=== PATIENT | male | born 1985 | race Asian ===

== ENCOUNTER 2019-06-26 13:55 | Emergency (ER) | payer OTHER ==
[2019-06-26 16:27] LABS: Absolute Lymphocytes (CBC) 2.5 K/uL (0.7-4.9); Basophils % 0.8 % (0-1.3); Hematocrit 48.5 % (39.6-49.0); Lymphocytes % 36.6 % (15.3-44.8); MPV 8.5 fL (7.6-11.3); RBC Red Blood Cell Count 5.65 M/uL (4.33-5.43)
[2019-06-26] MEDS ORDERED: MECLIZINE HCL 12.5 MG TAB ONE (16:38)
[2019-06-26] MEDS ORDERED: NA CHLORIDE 0.9% 1,000 ML ONE (16:38)
[2019-06-26] MEDS ORDERED: DIAZEPAM 10 MG/2 ML INJ SYRINGE ONE (16:38)
[2019-06-26 16:49] LABS: BUN Blood Urea Nitrogen 11 mg/dL (7-18); Bicarbonate 26 mmol/L (21-32); Glucose Level 93 mg/dL (74-106); Potassium 4.1 mmol/L (3.5-5.1); Sodium Level 138 mmol/L (136-145)
--- NOTE | 2019-06-26 17:03 | RAD REPORT ---
EXAM DESCRIPTION: CT - Head Brain Wo Cont - 06/26/2019 4:45 pm CLINICAL HISTORY: Dizziness COMPARISON: None. TECHNIQUE: Computed axial tomography of the head was obtained. IV contrast was not requested. All CT scans are performed using dose optimization technique as appropriate and may include automated exposure control or mA/KV adjustment according to patient size. FINDINGS: An intracranial bleed is not seen . The ventricles are normal in caliber. No extra-axial fluid collection is noted. Fluid within the sinuses/ mastoids is not seen. IMPRESSION: No acute intracranial abnormality is seen. If patient's symptoms persist MRI of the bra in would be recommended.
--- NOTE | 2019-06-26 17:20 | EDPHYS ---
Physician Documentation [facility] Name: Lopez Rubi Age: 34 yrs Sex: Male : 1985 Arrival Date: 06/26/2019 Time: 13:59 Bed 23 Private MD: ED Physician Reagan Tucker HPI: 06/25 17:02 This 34 yrs old Male presents to ER via Ambulatory with complaints of Dizziness, jr8 Nausea/Vomiting. 17:02 The patient presents with dizziness. Onset: The symptoms/episode began/occurred jr8 acutely, yesterday. Context: occurred at home, occurred while the patient was standing. Modifying factors: The symptoms are alleviated by holding head still, lying down, the symptoms are aggravated by movement of head, standing up, changing position. Associated signs and symptoms: Pertinent positives: nausea. Severity of symptoms: At their worst the symptoms were moderate in the emergency department the symptoms are unchanged. Patient's baseline: Neuro: alert and fully oriented, Motor: no deficits, Ambulation: walks without assistance, Speech: normal. The patient has not experienced similar symptoms in the past. The patient has not recently seen a physician. Historical: - Allergies: 14:29 No Known Allergies; ca1 - Home Meds: 14:29 None [Active]; ca1 - PMHx: 14:29 None; ca1 - PSHx: 14:29 None; ca1 - Immunization history:: Adult Immunizations up to date. - Social history:: Smoking status: Patient/guardian denies using tobacco, Stopped _ months ago 3. ROS: 17:02 Eyes: Negative for injury, pain, redness, and discharge, ENT: Negative for injury, jr8 pain, and discharge, Neck: Negative for injury, pain, and swelling, Cardiovascular: Negative for chest pain, palpitations, and edema, Respiratory: Negative for shortness of breath, cough, wheezing, and pleuritic chest pain, Back: Negative for injury and pain, MS/Extremity: Negative for injury and deformity, Skin: Negative for injury, rash, and discoloration. 17:02 Abdomen/GI: Positive for nausea. 17:02 Neuro: Positive for dizziness. Exam: 17:02 Eyes: Pupils equal round and reactive to light, extra-ocular motions intact. Lids and jr8 lashes normal. Conjunctiva and sclera are non-icteric and not injected. Cornea within normal limits. Periorbital areas with no swelling, redness, or edema. ENT: Nares patent. No nasal discharge, no septal abnormalities noted. Tympanic membranes are normal and external auditory canals are clear. Oropharynx with no redness, swelling, or masses, exudates, or evidence of obstruction, uvula midline. Mucous membranes moist. Neck: Trachea midline, no thyromegaly or masses palpated, and no cervical lymphadenopathy. Supple, full range of motion without nuchal rigidity, or vertebral point tenderness. No Meningismus. Cardiovascular: Regular rate and rhythm with a normal S1 and S2. No gallops, murmurs, or rubs. Normal PMI, no JVD. No pulse deficits. Respiratory: Lungs have equal breath sounds bilaterally, clear to auscultation and percussion. No rales, rhonchi or wheezes noted. No increased work of breathing, no retractions or nasal flaring. Abdomen/GI: Soft, non-tender, with normal bowel sounds. No distension or tympany. No guarding or rebound. No evidence of tenderness throughout. Back: No spinal tenderness. No costovertebral tenderness. Full range of motion. Skin: Warm, dry with normal turgor. Normal color with no rashes, no lesions, and no evidence of cellulitis. MS/ Extremity: Pulses equal, no cyanosis. Neurovascular intact. Full, normal range of motion. Neuro: Awake and alert, GCS 15, oriented to person, place, time, and situation. Cranial nerves II-XII grossly intact. Motor strength 5/5 in all extremities. Sensory grossly intact. Cerebellar exam normal. Normal gait. Vital Signs: 14:24 BP 134 / 85; Pulse 72; Resp 15 S; Temp 98(TE); Pulse Ox 100% on R/A; Weight 81.65 kg ca1 (R); Height 6 ft. 3 in. (190.50 cm); Pain 1/10; 14:24 Body Mass Index 22.50 (81.65 kg, 190.50 cm) ca1 MDM: 15:54 Patient medically screened. jr 17:18 Data reviewed: vital signs, nurses notes, lab test result(s), and as a result, I will jr8 discharge patient. Data interpreted: Pulse oximetry: on room air is 100 %. Interpretation: normal. Counseling: I had a detailed discussion with the patient and/or guardian regarding: the historical points, exam findings, and any diagnostic results supporting the discharge/admit diagnosis, lab results, the need for outpatient follow up, a family practitioner, to return to the emergency department if symptoms worsen or persist or if there are any questions or concerns that arise at home. Response to treatment: the patient's symptoms have markedly improved after treatment, patient is well hydrated. 17:19 Differential diagnosis: cardiac arrhythmia, CVA, generalized weakness, hypovolemia, jr8 idiopathic dizziness, near-syncope, syncope, TIA, vertigo. 06/25 16:13 Order name: CBC with Diff; Complete Time: 16:42 [facility] 06/25 16:13 Order name: Basic Metabolic Panel; Complete Time: 17:00 [facility] 06/25 16:13 Order name: CT Head Brain wo Cont; Complete Time: 17:07 [facility] 06/25 16:14 Order name: IV; Complete Time: 16:25 [facility] Administered Medications: 16:40 Drug: NS 0.9% 1000 ml Route: IV; Rate: 1000 ml; Site: left antecubital; iw 16:40 Drug: Meclizine 25 mg Route: PO; iw 16:40 Drug: Valium 2 mg Route: IVP; Site: left antecubital; iw Disposition: 06/26 09:14 Co-signature as Attending Physician, Reagan Tucker MD I agree with the assessment and kdr plan of care. Disposition: 06/26/19 17:19 Discharged to Home. Impression: Other peripheral vertigo. - Condition is Stable. - Discharge Instructions: Benign Positional Vertigo. - Prescriptions for Meclizine 25 mg Oral Tablet - take 1 tablet by ORAL route every 8 hours As needed; 30 tablet. Valium 2 mg Oral Tablet - take 1 tablet by ORAL route every 8 hours As needed; 20 tablet. - Medication Reconciliation Form, Thank You Letter, Antibiotic Education, Prescription Opioid Use form. - Follow up: Private Physician; When: 1 week; Reason: Recheck today's complaints, Continuance of care, Re-evaluation by your physician. - Problem is new. - Symptoms have improved. Signatures: Dispatcher [employer] EDNC Reagan Tucker MD MD [facility] Xochilt Peña RN RN iw Guicho Lagunas PA PA jr8 Caridad Adams RN RN ca1 Corrections: (The following items were deleted from the chart) 06/25 17:48 17:19 06/26/2019 17:19 Discharged to Home. Impression: Other peripheral vertigo. iw Condition is Stable. Forms are Medication Reconciliation Form, Thank You Letter, Antibiotic Education, Prescription Opioid Use. Follow up: Private Physician; When: 1 week; Reason: Recheck today's complaints, Continuance of care, Re-evaluation by your physician. Problem is new. Symptoms have improved. jr8
--- NOTE | 2019-06-26 17:20 | ER ---
Nurse's Notes [facility] Name: Lopez Rubi Age: 34 yrs Sex: Male : 1985 Arrival Date: 06/26/2019 Time: 13:59 Bed 23 Private MD: Diagnosis: Other peripheral vertigo Presentation: 06/25 14:24 Chief complaint: Patient states: Headache at 1230 mn at work. Took Tylenol and pain was ca1 relieved but had dizziness and nausea. Went to bed, woke up with same headache, more dizziness and nausea. Reports confusion, states, "I forgot my 's middle name, and took me a while to fill out the forms at registration". Reports similar episode of headache, dizziness and nausea 8 years ago and was diagnosed with low potassium. Coronavirus screen: Proceed with normal triage. Patient denies a cough. Patient denies shortness of breath or difficulty breathing. Patient denies measured and/or subjective temperature greater than 100.4F prior to today's visit. Patient denies travel on a cruise ship or to a country the [facility] currently lists as an affected area. Patient denies contact with known and/or suspected case of COVID-19. Ebola Screen: Patient negative for fever greater than or equal to 101.5 degrees Fahrenheit, and additional compatible Ebola Virus Disease symptoms Patient denies exposure to infectious person. Patient denies travel to an Ebola-affected area in the 21 days before illness onset. No symptoms or risks identified at this time. Initial Sepsis Screen: Does the patient meet any 2 criteria? No. Patient's initial sepsis screen is negative. Does the patient have a suspected source of infection? No. Patient's initial sepsis screen is negative. Risk Assessment: Do you want to hurt yourself or someone else? Patient reports no desire to harm self or others. 14:24 Method Of Arrival: Ambulatory ca1 14:24 Acuity: DELPHINE 3 ca1 14:24 Onset of symptoms was June 26, 2019 at 14:28. ca1 Triage Assessment: 17:47 General: Appears in no apparent distress. Behavior is calm. GI: Reports nausea. iw Historical: - Allergies: 14:29 No Known Allergies; ca1 - Home Meds: 14:29 None [Active]; ca1 - PMHx: 14:29 None; ca1 - PSHx: 14:29 None; ca1 - Immunization history:: Adult Immunizations up to date. - Social history:: Smoking status: Patient/guardian denies using tobacco, Stopped _ months ago 3. Screenin:47 Abuse screen: Denies threats or abuse. Denies injuries from another. Nutritional iw screening: No deficits noted. Tuberculosis screening: No symptoms or risk factors identified. Fall Risk None identified. Assessment: 16:00 General: Appears in no apparent distress. Behavior is calm, cooperative. Pain: Denies iw pain. Neuro: Level of Consciousness is awake, alert, obeys commands, Oriented to person, place, time, situation. Respiratory: Respiratory effort is even, unlabored, Respiratory pattern is regular, symmetrical. GI: Abdomen is flat, non-distended. Derm: Skin is intact, is healthy with good turgor. Musculoskeletal: Range of motion: intact in all extremities. 17:02 Reassessment: Patient appears in no apparent distress at this time. Patient and/or iw family updated on plan of care and expected duration. Pain level reassessed. Patient is alert, oriented x 3, equal unlabored respirations, skin warm/dry/pink. Vital Signs: 14:24 BP 134 / 85; Pulse 72; Resp 15 S; Temp 98(TE); Pulse Ox 100% on R/A; Weight 81.65 kg ca1 (R); Height 6 ft. 3 in. (190.50 cm); Pain 1/10; 14:24 Body Mass Index 22.50 (81.65 kg, 190.50 cm) ca1 ED Course: 13:59 Patient arrived in ED. ag5 14:28 Triage completed. ca1 14:29 Arm band placed on right wrist. ca1 15:32 Xochilt Peña, RN is Primary Nurse. iw 15:54 Guicho Lagunas PA is PHCP. jr8 15:54 Reagan Tucker MD is Attending Physician. jr8 16:00 Initial lab(s) drawn, by me, sent to lab. Inserted saline lock: 20 gauge in left iw antecubital area, using aseptic technique. Blood collected. 16:46 CT Head Brain wo Cont In Process Unspecified. EDMS 17:00 Patient has correct armband on for positive identification. iw 17:47 No provider procedures requiring assistance completed. IV discontinued, intact, iw bleeding controlled, No redness/swelling at site. Pressure dressing applied. Administered Medications: 16:40 Drug: NS 0.9% 1000 ml Route: IV; Rate: 1000 ml; Site: left antecubital; iw 16:40 Drug: Meclizine 25 mg Route: PO; iw 16:40 Drug: Valium 2 mg Route: IVP; Site: left antecubital; iw Outcome: 17:19 Discharge ordered by MD. winkler 17:47 Discharged to home ambulatory. iw 17:47 Condition: good 17:47 Discharge instructions given to patient, Instructed on discharge instructions, follow up and referral plans. Demonstrated understanding of instructions, follow-up care. 17:48 Patient left the ED. iw Signatures: Dispatcher [employer] EDMS Xochilt Peña RN RN iw Guicho Lagunas PA PA jr8 Caridad Adams RN RN ca1 Cathy Stone ag5 Corrections: (The following items were deleted from the chart) 14:29 14:24 Pulse 72bpm; Resp 15bpm; Spontaneous; Pulse Ox 100% RA; Temp 98F Temporal; 81.65 ca1 kg Reported; Height 6 ft. 3 in.; BMI: 22.5; Pain 1/10; ca1 16:29 14:24 Chief complaint: Patient states: Headache at 1230 mn at work. Took Tylenol and ca1 was pain was relieved but had dizziness and nausea. Went to bed, woke up with same headache, more dizziness and nausea. Reports confusion, states, "I forgot my 's middle name, and took me a while to fill out the forms at registration". Reports similar episode of headache, dizziness and nausea 8 years ago and was diagnosed with low potassium. ca1
[2019-06-26 18:03] VITALS: BP 134/85; TEMP 98; O2SAT 100
== END 2019-06-26 17:48 | disposition home or self-care (01) ==
LOC: ER 13:55
DX: H81.399 Other peripheral vertigo, unspecified ear (principal)
CPT/HCPCS: 85025; 80048; 36415; 70450; 96374; 99284; J8597; J3360; J7030

== ENCOUNTER 2020-05-23 13:03 | Emergency (ER) | payer OTHER ==
[2020-05-23] MEDS ORDERED: CYCLOBENZAPRINE 10 MG TAB ONE (15:23)
[2020-05-23] MEDS ORDERED: HYDROCODONE/APAP 5/325 MG TAB ONE (15:23)
[2020-05-23] MEDS ORDERED: KETOROLAC 30 MG/ML INJ ONE (15:23)
[2020-05-23] MEDS ORDERED: LIDOCAINE 4% PATCH ONE (15:24)
--- NOTE | 2020-05-23 15:51 | EDPHYS ---
Physician Documentation [facility] Name: Lopez Rbui Age: 35 yrs Sex: Male : 1985 Arrival Date: 05/23/2020 Time: 13:05 Bed 12 Private MD: PRINCESS Physician Hever Asencio HPI: 05/23 14:42 This 35 yrs old Male presents to ER via Ambulatory with complaints of Back Pain. pm1 14:42 The patient presents with pain that is acute, with no known mechanism of injury. The pm1 symptoms are located in the left trapezius. Onset: The symptoms/episode began/occurred May 12. The pain does not radiate. Associated signs and symptoms: Pertinent negatives: abdominal pain, chest pain, dysuria, fever, numbness, tingling, shortness of breath. The problem was sustained from unknown cause, possibly from vaccination. Modifying factors: the patient symptoms are aggravated by movement of arm, moving head side to side and sitting up from lying position. Severity of symptoms: in the emergency department the symptoms are actually worse. The patient has not experienced similar symptoms in the past. Patient with covid vaccine on 05/05/2020. Patient reports only left arm pain since the vaccine then his left upper back started to hurt on May 12. Has been taking OTC medications without any improvement. Back pain worse this today. Historical: - Allergies: 13:34 No Known Allergies; ca1 - Home Meds: 13:34 None [Active]; ca1 - PMHx: 13:34 None; ca1 - PSHx: 13:34 None; ca1 - Immunization history:: Adult Immunizations up to date, Client reports receiving the 1st dose of the Covid vaccine, Flu vaccine is up to date. - Social history:: Smoking status: Patient denies any tobacco usage or history of. ROS: 14:42 Constitutional: Negative for fever, chills, and weight loss. pm1 14:42 Cardiovascular: Negative for chest pain, palpitations, and edema, Respiratory: Negative for shortness of breath, cough, wheezing, and pleuritic chest pain, Abdomen/GI: Negative for abdominal pain, nausea, vomiting, diarrhea, and constipation. 14:42 MS/Extremity: Negative for injury and deformity, Skin: Negative for injury, rash, and discoloration, Neuro: Negative for headache, weakness, numbness, tingling, and seizure. 14:42 Neck: Positive for pain with movement, of the left trapezius, Negative for injury or acute deformity, stiffness, tenderness, bony tenderness. 14:42 Back: Positive for pain with movement, of the left trapezius, Negative for injury or acute deformity, decreased range of motion. Exam: 14:42 Constitutional: This is a well developed, well nourished patient who is awake, alert, pm1 and in no acute distress. Head/Face: Normocephalic, atraumatic. 14:42 Skin: Warm, dry with normal turgor. Normal color with no rashes, no lesions, and no evidence of cellulitis. MS/ Extremity: Pulses equal, no cyanosis. Neurovascular intact. Full, normal range of motion. 14:42 Neck: External neck: is normal, ROM/movement: pain, with rotation to the left, with rotation to the right, to left trapezius. 14:42 Cardiovascular: Exam negative for acute changes, Rate: normal, Rhythm: regular, Pulses: no pulse deficits are appreciated. 14:42 Respiratory: Exam negative for acute changes, respiratory distress, shortness of breath, Breath sounds: are clear throughout. 14:42 Back: pain, of the left trapezius, reproduced pain with raising left arm above his head and moving left elbow towards right shoulder, normal spinal alignment noted. 14:42 Neuro: Exam negative for acute changes, Orientation: is normal, Mentation: is normal, Motor: is normal, moves all fours, Sensation: is normal, no obvious gross deficits, Gait: is steady, at a normal pace, without difficulty. Vital Signs: 13:30 BP 132 / 83; Pulse 80; Resp 16 S; Temp 97.5(TE); Pulse Ox 99% on R/A; Weight 70.31 kg ca1 (R); Height 6 ft. 3 in. (190.50 cm) (R); Pain 7/10; 15:15 BP 116 / 71; Pulse 86; Resp 16 S; Pulse Ox 99% on R/A; ca1 13:30 Body Mass Index 19.37 (70.31 kg, 190.50 cm) ca1 MDM: 14:18 [facility] 15:42 Data reviewed: vital signs. Data interpreted: Pulse oximetry: on room air is 99 %. pm1 Interpretation: normal. 15:46 Medication response: improved. Patient able to situp and move better and reports pain pm1 to back has decreased. therefore will discharge the patient home with similar medications to regimen given here and recommended follow up with his PCP. Administered Medications: 15:13 Drug: Lidoderm 5 % (700 mg/patch) 1 patches Route: Topical; Site: affected area; aa5 15:13 Drug: Flexeril (cyclobenzaprine) 10 mg Route: PO; aa5 16:05 Follow up: Response: No adverse reaction; Marked relief of symptoms; Pain is decreased ca1 15:13 Drug: TORadol (ketorolac) 60 mg Route: IM; Site: left gluteus; aa5 16:06 Follow up: Response: No adverse reaction; Pain is decreased ca1 15:13 Drug: Brewster (HYDROcodone-acetaminophen) 5 mg-325 mg 1 tabs Route: PO; aa5 16:06 Follow up: Response: No adverse reaction; Pain is decreased; RASS: Alert and Calm (0) ca1 Disposition: 05/24 08:31 Co-signature as Attending Physician, Hever Asencio MD I agree with the assessment and marcello plan of care. Disposition: 05/23/20 15:50 Discharged to Home. Impression: Strain of muscle and tendon of back wall of thorax, Strain of muscle, fascia and tendon at neck level. - Condition is Stable. - Discharge Instructions: Muscle Strain. - Prescriptions for Tylenol- Codeine #3 300-30 mg Oral Tablet - take 2 tablets by ORAL route every 4-6 hours As needed; 20 tablet. Cyclobenzaprine 10 mg Oral Tablet - take 1 tablet by ORAL route every 8 hours As needed; 30 tablet. Lidoderm 5 % Topical adhesive patch,medicated - apply 1 patch by TRANSDERMAL route once daily As needed 12 hours on and 12 hour off in a 24 hour period; 30 Transdermal Patch. Diclofenac Sodium 75 mg Oral Tablet, Delayed Release (E.C.) - take 1 tablet by ORAL route 2 times per day As needed; 30 tablet. - Medication Reconciliation Form, Thank You Letter, Antibiotic Education, Prescription Opioid Use form. - Follow up: Emergency Department; When: As needed; Reason: Worsening of condition. Follow up: Private Physician; When: 2 - 3 days; Reason: Recheck today's complaints, Continuance of care, Re-evaluation by your physician. - Problem is new. - Symptoms have improved. Signatures: Hever Asencio MD MD cha Calderon, Audri, RN RN aa5 Gerry Burton, COLD REDUCTION ROLLER COLD REDUCTION ROLLER pm1 Caridad Adams RN RN ca1 Corrections: (The following items were deleted from the chart) 05/23 16:06 15:50 05/23/2020 15:50 Discharged to Home. Impression: Strain of muscle and tendon of ca1 back wall of thorax; Strain of muscle, fascia and tendon at neck level. Condition is Stable. Forms are Medication Reconciliation Form, Thank You Letter, Antibiotic Education, Prescription Opioid Use. Follow up: Emergency Department; When: As needed; Reason: Worsening of condition. Follow up: Private Physician; When: 2 - 3 days; Reason: Recheck today's complaints, Continuance of care, Re-evaluation by your physician. Problem is new. Symptoms have improved. pm1
--- NOTE | 2020-05-23 15:51 | ER ---
Nurse's Notes [facility] Name: Lopez Rubi Age: 35 yrs Sex: Male : 1985 Arrival Date: 05/23/2020 Time: 13:05 Bed 12 Private MD: Diagnosis: Strain of muscle and tendon of back wall of thorax;Strain of muscle, fascia and tendon at neck level Presentation: 05/23 13:28 Method Of Arrival: Ambulatory ca1 13:30 Chief complaint: Patient states: L upper back pain, around the shoulder blade pain ca1 since May 12, 2020, started getting worse yesterday. Had the Covid 05/05/2020 then I had L arm pain, then on the that's when it started. Now, it's just on the back. Denies injury to back. denies lifting anything heavy. Coronavirus screen: Client denies travel out of the [place] in the last 14 days. At this time, the client does not indicate any symptoms associated with coronavirus-19. Ebola Screen: Patient negative for fever greater than or equal to 101.5 degrees Fahrenheit, and additional compatible Ebola Virus Disease symptoms Patient denies exposure to infectious person. Patient denies travel to an Ebola-affected area in the 21 days before illness onset. No symptoms or risks identified at this time. Initial Sepsis Screen: Does the patient meet any 2 criteria? No. Patient's initial sepsis screen is negative. Does the patient have a suspected source of infection? No. Patient's initial sepsis screen is negative. Risk Assessment: Do you want to hurt yourself or someone else? Patient reports no desire to harm self or others. Onset of symptoms was May 23, 2020. 13:30 Acuity: DELPHINE 4 ca1 Historical: - Allergies: 13:34 No Known Allergies; ca1 - Home Meds: 13:34 None [Active]; ca1 - PMHx: 13:34 None; ca1 - PSHx: 13:34 None; ca1 - Immunization history:: Adult Immunizations up to date, Client reports receiving the 1st dose of the Covid vaccine, Flu vaccine is up to date. - Social history:: Smoking status: Patient denies any tobacco usage or history of. Screenin:10 Abuse screen: Denies threats or abuse. Denies injuries from another. Nutritional ca1 screening: No deficits noted. Tuberculosis screening: No symptoms or risk factors identified. Fall Risk None identified. Assessment: 14:10 General: Appears in no apparent distress. comfortable, Behavior is calm, cooperative, ca1 appropriate for age. Pain: Complains of pain in back and left trapezius Pain currently is 3 out of 10 on a pain scale. Neuro: Level of Consciousness is awake, alert, obeys commands, Oriented to person, place, time, situation, Appropriate for age. Derm: Skin is intact, is healthy with good turgor, Skin is pink, warm \T\ dry. Musculoskeletal: Circulation, motion, and sensation intact. Capillary refill < 3 seconds. 16:06 Reassessment: Patient appears in no apparent distress at this time. Patient is alert, ca1 oriented x 3, equal unlabored respirations, skin warm/dry/pink. Patient states feeling better. Patient states symptoms have improved. Vital Signs: 13:30 BP 132 / 83; Pulse 80; Resp 16 S; Temp 97.5(TE); Pulse Ox 99% on R/A; Weight 70.31 kg ca1 (R); Height 6 ft. 3 in. (190.50 cm) (R); Pain 7/10; 15:15 BP 116 / 71; Pulse 86; Resp 16 S; Pulse Ox 99% on R/A; ca1 13:30 Body Mass Index 19.37 (70.31 kg, 190.50 cm) ca1 ED Course: 13:05 Patient arrived in ED. as 13:33 Triage completed. ca1 13:34 Arm band placed on right wrist. ca1 14:10 Patient has correct armband on for positive identification. Call light in reach. Pulse ca1 ox on. NIBP on. 14:14 Gerry Burton NP is PHCP. pm1 14:14 Hever Asencio MD is Attending Physician. pm1 14:21 Caridad Adams RN is Primary Nurse. ca1 15:10 No provider procedures requiring assistance completed. Patient did not have IV access ca1 during this emergency room visit. Administered Medications: 15:13 Drug: Lidoderm 5 % (700 mg/patch) 1 patches Route: Topical; Site: affected area; aa5 15:13 Drug: Flexeril (cyclobenzaprine) 10 mg Route: PO; aa5 16:05 Follow up: Response: No adverse reaction; Marked relief of symptoms; Pain is decreased ca1 15:13 Drug: TORadol (ketorolac) 60 mg Route: IM; Site: left gluteus; aa5 16:06 Follow up: Response: No adverse reaction; Pain is decreased ca1 15:13 Drug: [place] (HYDROcodone-acetaminophen) 5 mg-325 mg 1 tabs Route: PO; aa5 16:06 Follow up: Response: No adverse reaction; Pain is decreased; RASS: Alert and Calm (0) ca1 Outcome: 15:50 Discharge ordered by MD. pm1 16:05 Discharged to home ambulatory, with family. ca1 16:05 Condition: stable 16:05 Discharge instructions given to patient, Instructed on discharge instructions, follow up and referral plans. no drinking with medication, no driving heavy equipment, medication usage, Demonstrated understanding of instructions, follow-up care, medications, Prescriptions given X 4. 16:06 Patient left the ED. ca1 Signatures: Leslie Baer Audri RN RN aa5 Gerry Burton NP ADMINISTRATIVE OFFICE MANAGER pm1 Caridad Adams RN RN ca1
[2020-05-23 16:11] VITALS: TEMP 97.5; O2SAT 99
[2020-05-23 16:12] VITALS: BP 116/71
== END 2020-05-23 16:06 | disposition home or self-care (01) ==
LOC: ER 13:03
DX: S29.012A Strain of muscle and tendon of back wall of thorax, initial encounter (principal); S16.1XXA Strain of muscle, fascia and tendon at neck level, initial encounter; X58.XXXA Exposure to other specified factors, initial encounter
CPT/HCPCS: 96372; 99283